=== PATIENT | female | born 1975 | race Caucasian/White ===

== ENCOUNTER → 2018-08-02 | Outpatient (CLI) | payer OTHER ==
[~2018-08-02] MED LIST: ACET325 PO; ALBU90OI INH; BUDE6HFA INH; CBD LOTION; FLUO10 PO; GABA800 PO; HYOS.125 SL; LATUDA40 MG PO; LATUDA80 MG PO; LISI20 PO; Lasix80 MG PO; METF500C PO; PANT40 PO; POTA8 PO; PRAZ5 PO; SUMATRIPTAN PO; TRAZ150T57 PO; [UNRECOGNIZED DRUG - OTHER]
[2018-08-04 16:09] LABS: HPV 16 Negative (Negative); HPV 18 Negative (Negative); HPV OTHER HR TYPES Negative (Negative)
== END | disposition home or self-care (01) ==
LOC: LAB SHORT 19:51 → LAB 19:51
PROVIDERS: Nurse Practitioner Women's Health
DX: Z12.72 Encounter for screening for malignant neoplasm of vagina (principal)
CPT/HCPCS: 87624; G0123

== ENCOUNTER 2020-08-08 18:55 | Emergency (ER) | payer OTHER ==
[~2020-08-08] VITALS: Ht 167.6 cm; Wt 143.8 kg
[~2020-08-08 18:55] MED LIST changes: +FURO40 PO; -Lasix80 MG PO
[2020-08-08 19:36] LABS: BASOPHILS ABSOLUTE AUTO 0.05 K/mm3 (0.00-0.23); BASOPHILS PERCENT AUTO 0 % (0-2); EOSINOPHILS PERCENT AUTO 2 % (0-6); Hematocrit 38.6 % (33.0-51.0); Hemoglobin 12.9 g/dL (11.5-16.0); IMMATURE GRAN ABSOLUTE AUTO 0.04 K/mm3 (0.00-0.10); IMMATURE GRAN PERCENT AUTO 0 % (0-1); LYMPHOCYTES ABSOLUTE AUTO 4.46 K/mm3 (0.84-5.20); LYMPHOCYTES PERCENT AUTO 37 % (21-46); MONOCYTES ABSOLUTE AUTO 0.57 K/mm3 (0.16-1.47); MONOCYTES PERCENT AUTO 5 % (4-13); Mean Corpuscular HGB 30.8 pg (26.0-34.0); Mean Corpuscular HGB Conc 33.4 g/dL (31.5-36.5); Mean Corpuscular Volume 92 fL (80-100); Mean Platelet Volume 10.3 fL (9.1-12.4); NEUTROPHILS ABSOLUTE AUTO 6.73 K/mm3 (1.96-9.15); NEUTROPHILS PERCENT AUTO 56 % (41-73); Platelet Count 270 K/mm3 (150-400); RDW Coefficient Variation 12.7 % (11.7-14.2); RDW Standard Deviation 42.8 fL (35.1-46.3); Red Blood Cell Count 4.19 M/mm3 (3.80-5.20); White Blood Cell Count 12.05 K/mm3 (4.00-11.30)
[2020-08-08 20:00] LABS: Troponin I <0.015 ng/mL (0.000-0.040)
[2020-08-08 20:08] LABS: Alanine Aminotransfer (ALT/SGP 15 U/L (12-78); Albumin, Blood 3.7 g/dL (3.4-5.0); Alk Phos 94 U/L (50-136); Anion Gap 9 mmol/L (6-16); Aspartate Aminotrans (AST/SGOT 7 U/L (12-37); Bilirubin, Total 0.3 mg/dL (0.1-1.0); Blood Urea Nitrogen 15 mg/dL (8-24); Bun/Creatinine Ratio 24.2 (12.0-20.0); CO2, Blood 21 mmol/L (21-32); Calcium, Blood 9.1 mg/dL (8.5-10.1); Chloride, Blood 109 mmol/L (98-108); Creatinine, Blood 0.62 mg/dL (0.40-1.00); Globulin, Blood 3.6 g/dL (2.2-4.0); Glomerular Filtration Rate >60 (60-); Glucose, Blood 133 mg/dL (70-99); Potassium, Blood 3.7 mmol/L (3.5-5.5); Sodium, Blood 139 mmol/L (136-145); Total Protein, Blood 7.3 g/dL (6.4-8.2)
[2020-08-08] MEDS ORDERED: LAMICTAL25 MG PO (21:11)
[2020-08-08] MEDS ORDERED: TOPI100 PO (21:12)
[2020-08-08] MEDS ORDERED: BUSP10 (21:12)
[2020-08-08 22:50] LABS: Influenza A, PCR Negative (NEGATIVE); Influenza B, PCR Negative (NEGATIVE); Resp Syncytial Virus, PCR Negative (NEGATIVE); SARS-Cov-2 (COVID-19) PCR, MMC Negative (NEGATIVE)
== END 2020-08-08 22:10 | disposition home or self-care (01) ==
LOC: ER 18:55
PROVIDERS: Emergency Medicine; Physician Assistant
DX: R07.9 Chest pain, unspecified (principal); F17.210 Nicotine dependence, cigarettes, uncomplicated; Z79.899 Other long term (current) drug therapy; Z79.84 Long term (current) use of oral hypoglycemic drugs; Z20.822 Contact with and (suspected) exposure to COVID-19; Z88.0 Allergy status to penicillin; Z88.1 Allergy status to other antibiotic agents
CPT/HCPCS: 0241U; 36415; 71046; 80053; 84484; 85025; 93005; 93010; 99285-25

== ENCOUNTER → 2020-11-14 | Outpatient (CLI) | payer OTHER ==
[~2020-11-14] MED LIST changes: +BUSP10; -FURO40 PO; +LAMICTAL25 MG PO; +Lasix80 MG PO; +TOPI100 PO
[2020-11-14 11:44] LABS: Source, Urine Clean Catch
[2020-11-14 12:11] LABS: Bilirubin, Urine Neg (Neg); Blood, Urine Neg (Neg); Glucose Qualitative, Urine Neg (Neg); Ketones, Urine Neg (Neg); Leukocyte Esterase, Urine 1+ (Neg); Nitrite, Urine Neg (Neg); Protein, Urine Neg (Neg); Urobilinogen, Urine NORM (Normal)
[2020-11-14 12:20] LABS: Amorphous Mod (0-Heavy); Appearance, Urine Hazy (Clear); Bacteria Few /hpf; Color, Urine Yellow (P-Yellow); Mucus Light (0-Heavy); Red Blood Cells, Urine Not Seen /hpf (0-2); Squamous Epithelial Cells Few /hpf (Few)
== END | disposition home or self-care (01) ==
LOC: LAB SHORT 11:20
PROVIDERS: Student in an Organized Health Care Education/Training Program
DX: R53.83 Other fatigue (principal)
CPT/HCPCS: 81001; 87086

== ENCOUNTER 2020-11-29 18:49 | Emergency (ER) | payer OTHER ==
[~2020-11-29] VITALS: Ht 167.6 cm; Wt 149.7 kg
[~2020-11-29 18:49] MED LIST changes: +FURO40 PO; -Lasix80 MG PO
[2020-11-29] MEDS ORDERED: Cymbalta20 MG PO (20:16)
== END 2020-11-29 21:00 | disposition home or self-care (01) ==
LOC: ER 18:49
DX: M70.62 Trochanteric bursitis, left hip (principal); M53.3 Sacrococcygeal disorders, not elsewhere classified; F17.210 Nicotine dependence, cigarettes, uncomplicated; Z88.0 Allergy status to penicillin; Z88.1 Allergy status to other antibiotic agents; Z79.899 Other long term (current) drug therapy
CPT/HCPCS: 73502; 99283-25

== ENCOUNTER 2021-01-15 17:28 | Emergency (ER) | payer OTHER ==
[~2021-01-15] VITALS: Ht 167.6 cm; Wt 149.7 kg
[~2021-01-15 17:28] MED LIST changes: +Cymbalta20 MG PO
[2021-01-15 18:32] LABS: BASOPHILS ABSOLUTE AUTO 0.04 K/mm3 (0.00-0.23); BASOPHILS PERCENT AUTO 0 % (0-2); EOSINOPHILS ABSOLUTE AUTO 0.23 K/mm3 (0.00-0.68); EOSINOPHILS PERCENT AUTO 2 % (0-6); Hematocrit 38.7 % (33.0-51.0); Hemoglobin 12.9 g/dL (11.5-16.0); IMMATURE GRAN ABSOLUTE AUTO 0.03 K/mm3 (0.00-0.10); IMMATURE GRAN PERCENT AUTO 0 % (0-1); LYMPHOCYTES ABSOLUTE AUTO 3.64 K/mm3 (0.84-5.20); LYMPHOCYTES PERCENT AUTO 37 % (21-46); MONOCYTES ABSOLUTE AUTO 0.68 K/mm3 (0.16-1.47); MONOCYTES PERCENT AUTO 7 % (4-13); Mean Corpuscular HGB 30.6 pg (26.0-34.0); Mean Corpuscular HGB Conc 33.3 g/dL (31.5-36.5); Mean Corpuscular Volume 92 fL (80-100); Mean Platelet Volume 9.8 fL (9.1-12.4); NEUTROPHILS ABSOLUTE AUTO 5.18 K/mm3 (1.96-9.15); NEUTROPHILS PERCENT AUTO 53 % (41-73); Platelet Count 278 K/mm3 (150-400); RDW Coefficient Variation 12.5 % (11.7-14.2); RDW Standard Deviation 42.1 fL (35.1-46.3); Red Blood Cell Count 4.21 M/mm3 (3.80-5.20)
[2021-01-15 19:24] LABS: Alanine Aminotransfer (ALT/SGP 17 U/L (12-78); Albumin, Blood 3.8 g/dL (3.4-5.0); Albumin/Globulin Ratio 0.9 (0.8-1.8); Alk Phos 79 U/L (50-136); Anion Gap 6 mmol/L (6-16); Aspartate Aminotrans (AST/SGOT 12 U/L (12-37); Bilirubin, Total 0.3 mg/dL (0.1-1.0); Blood Urea Nitrogen 20 mg/dL (8-24); Bun/Creatinine Ratio 23.7 (12.0-20.0); CO2, Blood 26 mmol/L (21-32); Calcium, Blood 9.1 mg/dL (8.5-10.1); Chloride, Blood 107 mmol/L (98-108); Creatinine, Blood 0.84 mg/dL (0.40-1.00); Globulin, Blood 4.1 g/dL (2.2-4.0); Glomerular Filtration Rate >60 (60-); Glucose, Blood 108 mg/dL (70-99); Sodium, Blood 139 mmol/L (136-145); Total Protein, Blood 7.9 g/dL (6.4-8.2)
[2021-01-15] MEDS ORDERED: Oxybutynin Chlo15 MG PO (21:45)
[2021-01-15] MEDS ORDERED: MELO7.5 (21:45)
[2021-01-15] MEDS ORDERED: ROPI.25 PO (21:45)
== END 2021-01-15 23:38 | disposition home or self-care (01) ==
LOC: ER 17:28
PROVIDERS: Physician Assistant
DX: G43.909 Migraine, unspecified, not intractable, without status migrainosus (principal); Z79.899 Other long term (current) drug therapy; Z88.0 Allergy status to penicillin; Z88.1 Allergy status to other antibiotic agents; Z87.891 Personal history of nicotine dependence
CPT/HCPCS: 36415; 70450; 76705; 80053; 85025; 96374; 96375; 99284-25; J0780; J1200; J1885; J7030

== ENCOUNTER 2021-02-07 08:04 | Day surgery (SDC) | payer OTHER ==
[~2021-02-07] VITALS: Ht 167.6 cm; Wt 146.0 kg
[~2021-02-07 08:04] MED LIST changes: +MELO7.5; +Oxybutynin Chlo15 MG PO; +ROPI.25 PO
[2021-02-07] MEDS ORDERED: BUSP10 PO (09:02)
--- NOTE | 2021-02-07 09:51 | NUR ---
Ambulatory in Day Surgery History, Chart, Medications and Allergies reviewed before start of procedure. Lungs clear T/O to Auscultation. Patient confirms NPO status and agrees with scheduled surgery. Patient States Post-Procedure ride home has been arranged. Pre-Op teaching done. Pt verbalizes understanding.
--- NOTE | 2021-02-07 12:23 | NUR ---
02/07/21 1223 Edelmira Dubose History, Chart, Medications and Allergies reviewed before start of procedure.Patient confirms NPO status and agrees with scheduled surgery.MONITOR INTACT WITH CONTINUOUS PULSE OXIMETRY AND INTERMITTENT BP.O2 VIA N/C INTACT THROUGHOUT SEDATION/PROCEDURE. See Anesthesia record
--- NOTE | 2021-02-07 13:11 | NUR ---
REPORT GIVEN TO MENDEL KENNEDY
--- NOTE | 2021-02-07 13:15 | NUR ---
Discharge instructions reviewed with patient. Patient verbalizes understanding. Copy given to patient to take home.
--- NOTE | 2021-02-07 13:25 | NUR ---
Discharged via wheelchair to private car for ride home.
== END 2021-02-07 13:30 | disposition home or self-care (01) ==
LOC: ORSCMMR 08:04 → ORD 09:30 → ORSCMMR 09:30
PROVIDERS: Internal Medicine Gastroenterology
PROC: 0DBP8ZX Excision of Rectum, Via Natural or Artificial Opening Endoscopic, Diagnostic (ICD-10-PCS; principal; 2021-02-07 09:30)
PROC: 0DBE8ZX Excision of Large Intestine, Via Natural or Artificial Opening Endoscopic, Diagnostic (ICD-10-PCS; principal; 2021-02-07 09:30)
PROC: 0DBK8ZX Excision of Ascending Colon, Via Natural or Artificial Opening Endoscopic, Diagnostic (ICD-10-PCS; principal; 2021-02-07 09:30)
DX: R19.4 Change in bowel habit (principal); Z86.010 Personal history of colon polyps; D12.2 Benign neoplasm of ascending colon; K60.2 Anal fissure, unspecified; K64.1 Second degree hemorrhoids; Z87.891 Personal history of nicotine dependence; E11.9 Type 2 diabetes mellitus without complications; I10 Essential (primary) hypertension; G40.909 Epilepsy, unspecified, not intractable, without status epilepticus; Z79.84 Long term (current) use of oral hypoglycemic drugs; Z79.899 Other long term (current) drug therapy; F31.9 Bipolar disorder, unspecified
CPT/HCPCS: 82947; 88305; J2704; J7120

== ENCOUNTER 2021-04-21 16:30 | Inpatient (IN) | payer OTHER ==
[~2021-04-21] VITALS: Ht 167.6 cm; Wt 144.6 kg
[~2021-04-21 16:30] MED LIST changes: -Cymbalta20 MG PO; -FURO40 PO; -GABA800 PO; -LAMICTAL25 MG PO; -METF500C PO; -POTA8 PO; -ROPI.25 PO; -TOPI100 PO; -TRAZ150T57 PO
[2021-04-21 17:49] LABS: Mean Corpuscular HGB 30.7 pg (26.0-34.0); Mean Corpuscular HGB Conc 33.3 g/dL (31.5-36.5); Mean Corpuscular Volume 92 fL (80-100); Platelet Count 272 K/mm3 (150-400); RDW Standard Deviation 43.5 fL (35.1-46.3); Red Blood Cell Count 4.24 M/mm3 (3.80-5.20); White Blood Cell Count 10.06 K/mm3 (4.00-11.30)
[2021-04-21 18:08] LABS: Alanine Aminotransfer (ALT/SGP 16 U/L (12-78); Albumin, Blood 3.6 g/dL (3.4-5.0); Albumin/Globulin Ratio 0.9 (0.8-1.8); Alk Phos 75 U/L (50-136); Anion Gap 6 mmol/L (6-16); Aspartate Aminotrans (AST/SGOT 11 U/L (12-37); Bilirubin, Total 0.4 mg/dL (0.1-1.0); Blood Urea Nitrogen 10 mg/dL (8-24); Bun/Creatinine Ratio 14.9 (12.0-20.0); CO2, Blood 25 mmol/L (21-32); Calcium, Blood 9.1 mg/dL (8.5-10.1); Chloride, Blood 108 mmol/L (98-108); Creatinine, Blood 0.67 mg/dL (0.40-1.00); Globulin, Blood 3.9 g/dL (2.2-4.0); Glomerular Filtration Rate >60 (60-); Glucose, Blood 109 mg/dL (70-99); Potassium, Blood 3.3 mmol/L (3.5-5.5); Sodium, Blood 139 mmol/L (136-145); Total Protein, Blood 7.5 g/dL (6.4-8.2)
[2021-04-21 18:16] LABS: BASOPHILS PERCENT MAN 1 % (0-2); EOSINOPHILS PERCENT MAN 1 % (0-6); LYMPHOCYTES % ATYPICAL MANUAL 3 % (0-0); LYMPHOCYTES ABSOLUTE MAN 3.52 K/mm3 (0.84-5.20); LYMPHOCYTES PERCENT MAN 32 % (21-46); MONOCYTES PERCENT MAN 5 % (4-13); NEUTROPHILS ABSOLUTE MAN 5.83 K/mm3 (1.96-9.15); SEG NEUTROPHILS PERCENT MAN 58 % (41-73); TOTAL CELLS COUNTED 100
[2021-04-21 19:12] LABS: International Normalized Ratio 1.01; Prothrombin Time Results 10.6 Sec (9.7-11.5)
[2021-04-21 21:44] LABS: SARS-Cov-2 (COVID-19) PCR, MMC NEGATIVE (NEGATIVE)
[2021-04-21] MEDS ORDERED: GABA600 PO (21:51)
[2021-04-21] MEDS ORDERED: ROPI.25 PO (21:52)
[2021-04-21] MEDS ORDERED: BUSP10 PO (21:53)
[2021-04-21] MEDS ORDERED: METF500 PO (21:53)
[2021-04-21] MEDS ORDERED: DULO30 PO (21:54)
[2021-04-21] MEDS ORDERED: LATUDA20 M3 PO (21:55)
[2021-04-21] MEDS ORDERED: Trazodone HCl300 MG PO (21:56)
[2021-04-21] MEDS ORDERED: POTCHL20ER PO (21:57)
[2021-04-21] MEDS ORDERED: TOPI100 PO (21:57)
[2021-04-21] MEDS ORDERED: FURO40 PO (22:03)
[2021-04-21] MEDS ORDERED: LAMO100 PO (22:03)
[2021-04-21] MEDS ORDERED: PROG100 PO (22:04)
--- NOTE | 2021-04-22 00:26 | NUR ---
NEW ADMIT PT ARRIVED FROM ER VIA W/C TO RM [phone] @[phone]. ADMITTED FOR CVA. SBY ASSIT TO BED. ORIENTED TO CALL LIGHT & RM. WCTM.
[2021-04-22] MEDS ORDERED: OXYB5 PO (00:34)
[2021-04-22 05:12] LABS: CHOL/HDL RATIO 4.9; Cholesterol 205 mg/dL (50-200); HDL Cholesterol 42 mg/dL (>39); LDL/HDL RATIO 3.4; Low Density Lipoprotein Chol 141 mg/dL (0-110); Triglycerides 108 mg/dL (30-160); Very Low Density Lipoprot Chol 21 mg/dL (6-32)
--- NOTE | 2021-04-22 05:18 | NUR ---
SHIFT SUMMARY AOX4. SLOW TO RESPOND @TIMES, STATES SHE FEELS "FOGGY & FORGETFUL." VSS. TELE NSR HR 60'S. HAS SLIGHT R FACIAL DROOP. 02/01 N/T PAIN TO R HAND RAIDIATING UP R ARM, GAVE TYLENOL 1X. R EXTREMITIES WEAKER SHOE STITCHER THEN L. +PRONATOR DRIFT R ARM. MRI, ECHO & SPEECH EVAL PLANNED FOR TODAY. DENIES CELAYA, N/V OR SOB. CALL LIGHT IN REACH & PT ABLE TO MAKE NEEDS KNOWN. WCTM.
--- NOTE | 2021-04-22 18:29 | NUR ---
PT IS ALERT AND ORIENTED X 3. DENIES PAIN. VS WNL. SHE IS VERY PLEASANT AND COOPERATIVE. SHE DOES NOT APPEAR TO BE IN ACUTE DISTRESS. SHE HAD AN UNEVENTFUL DAY. IV HL WAS REPLACED.
[2021-04-23 05:47] LABS: Anion Gap 7 mmol/L (6-16); Blood Urea Nitrogen 12 mg/dL (8-24); Bun/Creatinine Ratio 17.1 (12.0-20.0); CO2, Blood 25 mmol/L (21-32); Chloride, Blood 107 mmol/L (98-108); Glomerular Filtration Rate >60 (60-); Glucose, Blood 140 mg/dL (70-99); Potassium, Blood 3.8 mmol/L (3.5-5.5); Sodium, Blood 139 mmol/L (136-145)
[2021-04-23] MEDS ORDERED: ASPI81CH PO (11:05)
--- NOTE | 2021-04-23 11:44 | NUR ---
DISCHARGE INSTRUCTIONS REVIEWED WITH THE PATIENT. ALL QUESTIONS ANSWERED. IV AND TELE D/C'ED. PATIENT IN ROOM GETTING READY TO DISCHARGE HOMEL; PATIENT'S TO [facility] PATIENT.
== END 2021-04-23 12:33 | disposition home health service (06) | DRG 103 ==
LOC: ER 16:30 → MEDS 21:59
PROVIDERS: Emergency Medicine; Internal Medicine; Physician Assistant; ADMIT Internal Medicine
DX: G43.109 Migraine with aura, not intractable, without status migrainosus (principal); G45.9 Transient cerebral ischemic attack, unspecified; Z68.43 Body mass index [BMI] 50.0-59.9, adult; G81.91 Hemiplegia, unspecified affecting right dominant side; Z20.822 Contact with and (suspected) exposure to COVID-19; R29.810 Facial weakness; R47.81 Slurred speech; E87.6 Hypokalemia; F32.9 Major depressive disorder, single episode, unspecified; E11.9 Type 2 diabetes mellitus without complications; I10 Essential (primary) hypertension; E66.01 Morbid (severe) obesity due to excess calories; M54.30 Sciatica, unspecified side; E04.1 Nontoxic single thyroid nodule; Z88.0 Allergy status to penicillin; Z88.1 Allergy status to other antibiotic agents; Z79.899 Other long term (current) drug therapy; Z79.84 Long term (current) use of oral hypoglycemic drugs; Z90.49 Acquired absence of other specified parts of digestive tract; Z90.710 Acquired absence of both cervix and uterus; Z98.890 Other specified postprocedural states
CPT/HCPCS: 36415; 70450; 70496; 70498; 70551; 80048; 80053; 80061; 85025; 85610; 92507; 92523; 92610; 93005; 93010; 93306; 93880; 96374-59; 96375-59; 97110; 97161; 97167; 97530; 97535; 99285-25; A9270; J1100; J1200; J2765; Q9967; U0004

== ENCOUNTER 2021-10-06 18:27 | Emergency (ER) | payer MEDICARE, OTHER ==
[~2021-10-06] VITALS: Ht 167.6 cm; Wt 145.2 kg
[~2021-10-06 18:27] MED LIST changes: +ASPI81CH PO; +BUSP10 PO; +DULO30 PO; +FURO40 PO; +GABA600 PO; +LAMO100 PO; +LATUDA20 M3 PO; +METF500 PO; +OXYB5 PO; +POTCHL20ER PO; +PROG100 PO; +ROPI.25 PO; +TOPI100 PO; +Trazodone HCl300 MG PO
[2021-10-06 19:14] LABS: Source, Urine Clean Catch
[2021-10-06 19:16] LABS: Bilirubin, Urine Neg (Neg); Blood, Urine Neg (Neg); Glucose Qualitative, Urine Neg (Neg); Ketones, Urine Neg (Neg); Leukocyte Esterase, Urine Neg (Neg); Nitrite, Urine Neg (Neg); Protein, Urine Neg (Neg); Urobilinogen, Urine NORM (Normal)
[2021-10-06 19:22] LABS: Appearance, Urine Clear (Clear); Color, Urine Pale Yellow (P-Yellow)
[2021-10-06 20:00] LABS: BASOPHILS ABSOLUTE AUTO 0.06 K/mm3 (0.00-0.23); BASOPHILS PERCENT AUTO 1 % (0-2); EOSINOPHILS ABSOLUTE AUTO 0.21 K/mm3 (0.00-0.68); EOSINOPHILS PERCENT AUTO 2 % (0-6); Hemoglobin 14.5 g/dL (11.5-16.0); IMMATURE GRAN ABSOLUTE AUTO 0.04 K/mm3 (0.00-0.10); IMMATURE GRAN PERCENT AUTO 0 % (0-1); LYMPHOCYTES PERCENT AUTO 37 % (21-46); MONOCYTES PERCENT AUTO 5 % (4-13); Mean Corpuscular HGB 30.4 pg (26.0-34.0); Mean Corpuscular HGB Conc 32.2 g/dL (31.5-36.5); Mean Corpuscular Volume 94 fL (80-100); Mean Platelet Volume 10.2 fL (9.1-12.4); NEUTROPHILS ABSOLUTE AUTO 6.14 K/mm3 (1.96-9.15); NEUTROPHILS PERCENT AUTO 55 % (41-73); Platelet Count 279 K/mm3 (150-400); RDW Coefficient Variation 12.3 % (11.7-14.2); RDW Standard Deviation 42.9 fL (35.1-46.3); Red Blood Cell Count 4.77 M/mm3 (3.80-5.20); White Blood Cell Count 11.25 K/mm3 (4.00-11.30)
[2021-10-06 20:21] LABS: Alanine Aminotransfer (ALT/SGP 22 U/L (12-78); Albumin, Blood 3.8 g/dL (3.4-5.0); Albumin/Globulin Ratio 0.9 (0.8-1.8); Alk Phos 107 U/L (50-136); Anion Gap 6 mmol/L (6-16); Aspartate Aminotrans (AST/SGOT 23 U/L (12-37); Bilirubin, Total 0.5 mg/dL (0.1-1.0); Blood Urea Nitrogen 12 mg/dL (8-24); Bun/Creatinine Ratio 21.2 (12.0-20.0); CO2, Blood 19 mmol/L (21-32); Calcium, Blood 8.8 mg/dL (8.5-10.1); Chloride, Blood 109 mmol/L (98-108); Creatinine, Blood 0.57 mg/dL (0.40-1.00); Globulin, Blood 4.4 g/dL (2.2-4.0); Glomerular Filtration Rate >60 (60-); Glucose, Blood 184 mg/dL (70-99); Potassium, Blood 4.5 mmol/L (3.5-5.5); Sodium, Blood 134 mmol/L (136-145); Total Protein, Blood 8.2 g/dL (6.4-8.2)
[2021-10-15] MEDS ORDERED: Norco 5-325 Ta1 EACH PO (11:59)
== END 2021-10-07 00:09 | disposition home or self-care (01) ==
LOC: ER 18:27
PROVIDERS: Physician Assistant
DX: K80.50 Calculus of bile duct without cholangitis or cholecystitis without obstruction (principal); E11.9 Type 2 diabetes mellitus without complications; Z88.0 Allergy status to penicillin; Z79.899 Other long term (current) drug therapy
CPT/HCPCS: 36415; 76705; 80053; 81003; 81025; 83690; 85025; 99285-25; A9270; J1885; J2405; J3010; J7030

== ENCOUNTER 2021-11-06 17:24 | Emergency (ER) | payer MEDICARE, OTHER ==
[~2021-11-06] VITALS: Ht 167.6 cm; Wt 142.4 kg
[~2021-11-06 17:24] MED LIST changes: +Norco 5-325 Ta1 EACH PO
[2021-11-06 18:30] LABS: BASOPHILS ABSOLUTE AUTO 0.03 K/mm3 (0.00-0.23); BASOPHILS PERCENT AUTO 0 % (0-2); EOSINOPHILS ABSOLUTE AUTO 0.14 K/mm3 (0.00-0.68); EOSINOPHILS PERCENT AUTO 2 % (0-6); Hematocrit 38.8 % (33.0-51.0); Hemoglobin 13.3 g/dL (11.5-16.0); IMMATURE GRAN ABSOLUTE AUTO 0.02 K/mm3 (0.00-0.10); IMMATURE GRAN PERCENT AUTO 0 % (0-1); LYMPHOCYTES ABSOLUTE AUTO 3.17 K/mm3 (0.84-5.20); LYMPHOCYTES PERCENT AUTO 40 % (21-46); MONOCYTES PERCENT AUTO 6 % (4-13); Mean Corpuscular HGB 30.9 pg (26.0-34.0); Mean Corpuscular HGB Conc 34.3 g/dL (31.5-36.5); Mean Corpuscular Volume 90 fL (80-100); Mean Platelet Volume 10.2 fL (9.1-12.4); NEUTROPHILS PERCENT AUTO 51 % (41-73); Platelet Count 275 K/mm3 (150-400); RDW Coefficient Variation 12.8 % (11.7-14.2); RDW Standard Deviation 41.9 fL (35.1-46.3); White Blood Cell Count 7.86 K/mm3 (4.00-11.30)
[2021-11-06 18:47] LABS: Alanine Aminotransfer (ALT/SGP 24 U/L (12-78); Albumin, Blood 3.7 g/dL (3.4-5.0); Alk Phos 93 U/L (50-136); Anion Gap 7 mmol/L (6-16); Aspartate Aminotrans (AST/SGOT 10 U/L (12-37); Bilirubin, Total 0.4 mg/dL (0.1-1.0); Blood Urea Nitrogen 15 mg/dL (8-24); Bun/Creatinine Ratio 28.5 (12.0-20.0); CO2, Blood 22 mmol/L (21-32); Calcium, Blood 9.3 mg/dL (8.5-10.1); Chloride, Blood 107 mmol/L (98-108); Creatinine, Blood 0.53 mg/dL (0.40-1.00); Globulin, Blood 3.7 g/dL (2.2-4.0); Glomerular Filtration Rate >60 (60-); Glucose, Blood 244 mg/dL (70-99); Potassium, Blood 3.4 mmol/L (3.5-5.5); Sodium, Blood 136 mmol/L (136-145); Total Protein, Blood 7.4 g/dL (6.4-8.2)
== END 2021-11-06 20:01 | disposition home or self-care (01) ==
LOC: ER 17:24
PROVIDERS: Physician Assistant
DX: G43.109 Migraine with aura, not intractable, without status migrainosus (principal); Z88.1 Allergy status to other antibiotic agents; Z88.0 Allergy status to penicillin; Z79.899 Other long term (current) drug therapy; Z79.82 Long term (current) use of aspirin; E11.40 Type 2 diabetes mellitus with diabetic neuropathy, unspecified
CPT/HCPCS: 70450; 70496; 70498; 80053; 82947; 85025; 86850; 86900; 86901; 93005; 93010; 96374; 96375; 99284-25; J1200; J1885; J2060; J2765; Q9967

== ENCOUNTER 2021-12-02 14:25 | Observation (INO) | payer MEDICARE, OTHER ==
[~2021-12-02] VITALS: Ht 167.6 cm; Wt 144.2 kg
[2021-12-02 15:56] LABS: Source, Urine Clean Catch
[2021-12-02 15:59] LABS: Appearance, Urine Hazy (Clear); Bilirubin, Urine Neg (Neg); Blood, Urine 3+ (Neg); Color, Urine Yellow (P-Yellow); Glucose Qualitative, Urine Neg (Neg); Ketones, Urine Neg (Neg); Leukocyte Esterase, Urine 3+ (Neg); Nitrite, Urine Neg (Neg); Protein, Urine 1+ (Neg); Specific Gravity, Urine 1.015 (1.003-1.022); Urobilinogen, Urine NORM (Normal)
[2021-12-02 16:13] LABS: BASOPHILS ABSOLUTE AUTO 0.06 K/mm3 (0.00-0.23); BASOPHILS PERCENT AUTO 0 % (0-2); EOSINOPHILS ABSOLUTE AUTO 0.07 K/mm3 (0.00-0.68); EOSINOPHILS PERCENT AUTO 1 % (0-6); Hematocrit 43.9 % (33.0-51.0); Hemoglobin 15.1 g/dL (11.5-16.0); IMMATURE GRAN ABSOLUTE AUTO 0.06 K/mm3 (0.00-0.10); IMMATURE GRAN PERCENT AUTO 0 % (0-1); LYMPHOCYTES ABSOLUTE AUTO 4.41 K/mm3 (0.84-5.20); LYMPHOCYTES PERCENT AUTO 29 % (21-46); MONOCYTES PERCENT AUTO 5 % (4-13); Mean Corpuscular HGB 31.3 pg (26.0-34.0); Mean Corpuscular HGB Conc 34.4 g/dL (31.5-36.5); Mean Corpuscular Volume 91 fL (80-100); Mean Platelet Volume 10.1 fL (9.1-12.4); NEUTROPHILS ABSOLUTE AUTO 10.16 K/mm3 (1.96-9.15); NEUTROPHILS PERCENT AUTO 66 % (41-73); Platelet Count 305 K/mm3 (150-400); RDW Coefficient Variation 12.9 % (11.7-14.2); RDW Standard Deviation 42.7 fL (35.1-46.3); Red Blood Cell Count 4.82 M/mm3 (3.80-5.20); White Blood Cell Count 15.46 K/mm3 (4.00-11.30)
[2021-12-02 16:19] LABS: Bacteria Many /hpf; Squamous Epithelial Cells Mod /hpf (Few)
[2021-12-02 16:20] LABS: Amorphous Light (0-Heavy)
[2021-12-02] MEDS ORDERED: METFORMIN HCL500 M3 PO (16:26)
[2021-12-02] MEDS ORDERED: ATORVASTATIN CA20 MG PO (16:27)
[2021-12-02] MEDS ORDERED: LISI5 PO (16:29)
[2021-12-02] MEDS ORDERED: EUTHYROX50 MC1 PO (16:30)
[2021-12-02] MEDS ORDERED: Potassium Chlo20 ME1 PO (16:30)
[2021-12-02] MEDS ORDERED: TERB250 PO (16:31)
[2021-12-02] MEDS ORDERED: LINZESS290 MCG PO (16:32)
[2021-12-02 16:36] LABS: Acetaminophen, Random <2.0 ug/mL (10.0-30.0); Alanine Aminotransfer (ALT/SGP 22 U/L (12-78); Albumin, Blood 4.1 g/dL (3.4-5.0); Albumin/Globulin Ratio 0.9 (0.8-1.8); Alk Phos 117 U/L (50-136); Anion Gap 12 mmol/L (6-16); Aspartate Aminotrans (AST/SGOT 13 U/L (12-37); Bilirubin, Total 0.5 mg/dL (0.1-1.0); Blood Urea Nitrogen 9 mg/dL (8-24); Bun/Creatinine Ratio 18.8 (12.0-20.0); CO2, Blood 20 mmol/L (21-32); Calcium, Blood 9.3 mg/dL (8.5-10.1); Chloride, Blood 105 mmol/L (98-108); Creatinine, Blood 0.48 mg/dL (0.40-1.00); Ethanol (Alcohol), Blood, Med <3 mg/dL; Globulin, Blood 4.4 g/dL (2.2-4.0); Glomerular Filtration Rate >60 (60-); Glucose, Blood 158 mg/dL (70-99); Potassium, Blood 3.7 mmol/L (3.5-5.5); Salicylate <1.7 mg/dL (2.8-20.0); Sodium, Blood 137 mmol/L (136-145); Total Protein, Blood 8.5 g/dL (6.4-8.2)
[2021-12-02 16:40] LABS: U Amphetamine Screen Not Detected; U Barbituate Screen Not Detected; U Benzodiazapine Screen Not Detected; U Buprenorphine Screen Not Detected; U Cannabinoids Screen DETECTED; U Cocaine Screen Not Detected; U Methadone Screen Not Detected; U Methamphetamine Screen Not Detected; U Opiates Screen Not Detected; U Oxycodone Screen Not Detected; U Phencyclidine Screen Not Detected; U Propoxyphene Screen Not Detected
[2021-12-02 18:58] LABS: Influenza A, PCR NEGATIVE (NEGATIVE); Influenza B, PCR NEGATIVE (NEGATIVE); Resp Syncytial Virus, PCR NEGATIVE (NEGATIVE); SARS-Cov-2 (COVID-19) PCR, MMC NEGATIVE (NEGATIVE)
== END 2021-12-04 01:38 ==
LOC: ER 14:25 → ERHOLD 17:17 → ER 17:17 → EOR 17:18
PROVIDERS: Physician Assistant; ADMIT Emergency Medicine
DX: F31.4 Bipolar disorder, current episode depressed, severe, without psychotic features (principal); F43.12 Post-traumatic stress disorder, chronic; F43.23 Adjustment disorder with mixed anxiety and depressed mood; R45.851 Suicidal ideations; E11.42 Type 2 diabetes mellitus with diabetic polyneuropathy; G43.909 Migraine, unspecified, not intractable, without status migrainosus; Z79.82 Long term (current) use of aspirin; Z88.0 Allergy status to penicillin; Z88.1 Allergy status to other antibiotic agents; Z20.822 Contact with and (suspected) exposure to COVID-19; Z87.891 Personal history of nicotine dependence
CPT/HCPCS: 0241U; 36415; 80053; 81001; 81025; 85025; 87086; 99285; A9270; G0378; G0480; Q3014

== ENCOUNTER 2022-02-18 13:57 | Emergency (ER) | payer MEDICARE, OTHER ==
[~2022-02-18] VITALS: Ht 167.6 cm; Wt 139.7 kg
[~2022-02-18 13:57] MED LIST changes: +ATORVASTATIN CA20 MG PO; +EUTHYROX50 MC1 PO; +LINZESS290 MCG PO; +LISI5 PO; +METFORMIN HCL500 M3 PO; +Potassium Chlo20 ME1 PO; +TERB250 PO
[2022-02-18 15:18] LABS: Source, Urine Clean Catch
[2022-02-18 15:25] LABS: Albumin, Blood 3.6 g/dL (3.4-5.0); Albumin/Globulin Ratio 0.9 (0.8-1.8); Bilirubin, Total 0.4 mg/dL (0.1-1.0); Bun/Creatinine Ratio 26.6 (12.0-20.0); Calcium, Blood 9.3 mg/dL (8.5-10.1); Creatinine, Blood 0.41 mg/dL (0.40-1.00); Globulin, Blood 4.1 g/dL (2.2-4.0); Potassium, Blood 4.1 mmol/L (3.5-5.5); Total Protein, Blood 7.7 g/dL (6.4-8.2)
[2022-02-18 15:31] LABS: Appearance, Urine Hazy (Clear); Bilirubin, Urine Neg (Neg); Blood, Urine Neg (Neg); Glucose Qualitative, Urine Neg (Neg); Ketones, Urine Neg (Neg); Leukocyte Esterase, Urine Neg (Neg); Nitrite, Urine Neg (Neg); Protein, Urine Neg (Neg); Urobilinogen, Urine NORM (Normal)
[2022-02-18 15:45] LABS: Color, Urine Pale Yellow (P-Yellow)
[2022-02-18 15:47] LABS: Bacteria Many /hpf; Red Blood Cells, Urine 0-2 /hpf (0-2); Squamous Epithelial Cells Many /hpf (Few); White Blood Cells, Urine 0-2 /hpf (0-5)
[2022-02-18 16:06] LABS: BASOPHILS ABSOLUTE AUTO 0.05 K/mm3 (0.00-0.23); BASOPHILS PERCENT AUTO 1 % (0-2); EOSINOPHILS ABSOLUTE AUTO 0.18 K/mm3 (0.00-0.68); EOSINOPHILS PERCENT AUTO 2 % (0-6); Hematocrit 44.4 % (33.0-51.0); Hemoglobin 15.1 g/dL (11.5-16.0); IMMATURE GRAN ABSOLUTE AUTO 0.05 K/mm3 (0.00-0.10); IMMATURE GRAN PERCENT AUTO 1 % (0-1); LYMPHOCYTES ABSOLUTE AUTO 3.62 K/mm3 (0.84-5.20); LYMPHOCYTES PERCENT AUTO 35 % (21-46); MONOCYTES ABSOLUTE AUTO 0.56 K/mm3 (0.16-1.47); MONOCYTES PERCENT AUTO 5 % (4-13); Mean Corpuscular HGB 30.4 pg (26.0-34.0); Mean Corpuscular Volume 90 fL (80-100); Mean Platelet Volume 9.9 fL (9.1-12.4); NEUTROPHILS ABSOLUTE AUTO 5.82 K/mm3 (1.96-9.15); NEUTROPHILS PERCENT AUTO 57 % (41-73); Platelet Count 279 K/mm3 (150-400); RDW Coefficient Variation 12.4 % (11.7-14.2); RDW Standard Deviation 40.7 fL (35.1-46.3); Red Blood Cell Count 4.96 M/mm3 (3.80-5.20); White Blood Cell Count 10.28 K/mm3 (4.00-11.30)
== END 2022-02-18 22:36 | disposition home or self-care (01) ==
LOC: ER 13:57
PROVIDERS: Physician Assistant
DX: K52.9 Noninfective gastroenteritis and colitis, unspecified (principal); E11.42 Type 2 diabetes mellitus with diabetic polyneuropathy; Z79.899 Other long term (current) drug therapy; Z79.84 Long term (current) use of oral hypoglycemic drugs; Z88.1 Allergy status to other antibiotic agents; Z88.0 Allergy status to penicillin; Z88.8 Allergy status to other drugs, medicaments and biological substances; Z79.82 Long term (current) use of aspirin; Z90.49 Acquired absence of other specified parts of digestive tract; Z90.710 Acquired absence of both cervix and uterus
CPT/HCPCS: 36415; 74177; 80053; 81001; 83690; 84703; 85025; J2270; J2405; Q9967

== ENCOUNTER 2023-04-02 14:24 | Emergency (ER) | payer MEDICARE, OTHER ==
[~2023-04-02] VITALS: Ht 167.6 cm; Wt 136.1 kg
[~2023-04-02 14:24] MED LIST changes: +HYDCHL25 PO; +MECL25 PO; +ONDA4 PO; +Percocet 5-3251 EACH PO
[2023-04-02 15:54] LABS: BASOPHILS ABSOLUTE AUTO 0.04 K/mm3 (0.00-0.23); BASOPHILS PERCENT AUTO 0 % (0-2); EOSINOPHILS ABSOLUTE AUTO 0.08 K/mm3 (0.00-0.68); EOSINOPHILS PERCENT AUTO 1 % (0-6); Hemoglobin 12.8 g/dL (11.5-16.0); IMMATURE GRAN ABSOLUTE AUTO 0.03 K/mm3 (0.00-0.10); IMMATURE GRAN PERCENT AUTO 0 % (0-1); LYMPHOCYTES ABSOLUTE AUTO 3.14 K/mm3 (0.84-5.20); LYMPHOCYTES PERCENT AUTO 35 % (21-46); MONOCYTES ABSOLUTE AUTO 0.54 K/mm3 (0.16-1.47); MONOCYTES PERCENT AUTO 6 % (4-13); Mean Corpuscular HGB 29.2 pg (26.0-34.0); Mean Corpuscular HGB Conc 33.7 g/dL (31.5-36.5); Mean Corpuscular Volume 87 fL (80-100); Mean Platelet Volume 9.7 fL (9.1-12.4); NEUTROPHILS PERCENT AUTO 57 % (41-73); Platelet Count 271 K/mm3 (150-400); RDW Standard Deviation 38.5 fL (35.1-46.3); Red Blood Cell Count 4.38 M/mm3 (3.80-5.20); White Blood Cell Count 8.93 K/mm3 (4.00-11.30)
[2023-04-02 16:21] LABS: Albumin, Blood 3.7 g/dL (3.4-5.0); Albumin/Globulin Ratio 0.9 (0.8-1.8); Bilirubin, Total 0.4 mg/dL (0.1-1.0); Bun/Creatinine Ratio 26.7 (12.0-20.0); Calcium, Blood 9.4 mg/dL (8.5-10.1); Creatinine, Blood 0.6 mg/dL (0.40-1.00); Globulin, Blood 4.2 g/dL (2.2-4.0); Potassium, Blood 3.7 mmol/L (3.5-5.5); Total Protein, Blood 7.9 g/dL (6.4-8.2)
[2023-04-02 18:31] LABS: Source, Urine Clean Catch
[2023-04-02 18:50] LABS: Appearance, Urine Hazy (Clear); Bilirubin, Urine Neg (Neg); Blood, Urine Neg (Neg); Color, Urine Yellow (P-Yellow); Glucose Qualitative, Urine Neg (Neg); Ketones, Urine Neg (Neg); Leukocyte Esterase, Urine Neg (Neg); Nitrite, Urine Neg (Neg); Protein, Urine Neg (Neg); Specific Gravity, Urine 1.025 (1.003-1.022); Urobilinogen, Urine NORM (Normal)
[2023-04-02 19:09] LABS: Bacteria Many /hpf; Red Blood Cells, Urine 0-2 /hpf (0-2); Squamous Epithelial Cells Mod /hpf (Few); White Blood Cells, Urine 0-2 /hpf (0-5)
[2023-04-02 19:10] LABS: Amorphous Light (0-Heavy)
[2023-04-02] MEDS ORDERED: LOPE2C PO (23:11)
[2023-04-02] MEDS ORDERED: OMEP20ER PO (23:11)
[2023-04-02] MEDS ORDERED: ONDA4ODT MM (23:11)
[2023-04-02] MEDS ORDERED: PROBIOTIC1 EA13 PO (23:11)
[2023-04-02 23:47] VITALS: BP 141/80
== END 2023-04-02 23:43 | disposition home or self-care (01) ==
LOC: ER 14:24
PROVIDERS: Student in an Organized Health Care Education/Training Program
DX: R10.12 Left upper quadrant pain (principal); R11.2 Nausea with vomiting, unspecified; R19.7 Diarrhea, unspecified; E11.42 Type 2 diabetes mellitus with diabetic polyneuropathy; M19.90 Unspecified osteoarthritis, unspecified site; G43.909 Migraine, unspecified, not intractable, without status migrainosus
CPT/HCPCS: 74176; 80053; 81001; 83690; 84484; 85025; 87086; 93005; 93010; 96374; 99284-25; A9270; J2405

== ENCOUNTER 2023-05-04 17:06 | Emergency (ER) | payer MEDICARE ==
[~2023-05-04] VITALS: Ht 167.6 cm; Wt 145.2 kg
[~2023-05-04 17:06] MED LIST changes: +LOPE2C PO; +OMEP20ER PO; +ONDA4ODT MM; +PROBIOTIC1 EA13 PO
[2023-05-04 18:39] LABS: Source, Urine Clean Catch
[2023-05-04 18:48] LABS: Appearance, Urine Clear (Clear); Bilirubin, Urine Neg (Neg); Blood, Urine Neg (Neg); Color, Urine Yellow (P-Yellow); Glucose Qualitative, Urine Neg (Neg); Ketones, Urine Neg (Neg); Leukocyte Esterase, Urine Neg (Neg); Nitrite, Urine Neg (Neg); Protein, Urine Neg (Neg); Specific Gravity, Urine 1.025 (1.003-1.022); Urobilinogen, Urine NORM (Normal)
[2023-05-04 19:13] LABS: BASOPHILS ABSOLUTE AUTO 0.04 K/mm3 (0.00-0.23); BASOPHILS PERCENT AUTO 0 % (0-2); EOSINOPHILS ABSOLUTE AUTO 0.12 K/mm3 (0.00-0.68); EOSINOPHILS PERCENT AUTO 1 % (0-6); Hematocrit 38.6 % (33.0-51.0); Hemoglobin 12.6 g/dL (11.5-16.0); IMMATURE GRAN ABSOLUTE AUTO 0.04 K/mm3 (0.00-0.10); IMMATURE GRAN PERCENT AUTO 0 % (0-1); LYMPHOCYTES PERCENT AUTO 33 % (21-46); MONOCYTES ABSOLUTE AUTO 0.71 K/mm3 (0.16-1.47); MONOCYTES PERCENT AUTO 6 % (4-13); Mean Corpuscular HGB 28.8 pg (26.0-34.0); Mean Corpuscular HGB Conc 32.6 g/dL (31.5-36.5); Mean Corpuscular Volume 88 fL (80-100); Mean Platelet Volume 9.6 fL (9.1-12.4); NEUTROPHILS ABSOLUTE AUTO 7.73 K/mm3 (1.96-9.15); NEUTROPHILS PERCENT AUTO 60 % (41-73); Platelet Count 293 K/mm3 (150-400); RDW Coefficient Variation 12.6 % (11.7-14.2); RDW Standard Deviation 40.9 fL (35.1-46.3); Red Blood Cell Count 4.38 M/mm3 (3.80-5.20); White Blood Cell Count 12.84 K/mm3 (4.00-11.30)
[2023-05-04 19:37] LABS: Albumin, Blood 3.5 g/dL (3.4-5.0); Albumin/Globulin Ratio 0.9 (0.8-1.8); Bilirubin, Total 0.2 mg/dL (0.1-1.0); Calcium, Blood 9.2 mg/dL (8.5-10.1); Creatinine, Blood 0.76 mg/dL (0.40-1.00); Globulin, Blood 4.1 g/dL (2.2-4.0); Potassium, Blood 3.9 mmol/L (3.5-5.5); Total Protein, Blood 7.6 g/dL (6.4-8.2)
[2023-05-04 19:41] LABS: Influenza A, PCR NEGATIVE (NEGATIVE); Influenza B, PCR NEGATIVE (NEGATIVE); Resp Syncytial Virus, PCR NEGATIVE (NEGATIVE); SARS-Cov-2 (COVID-19) PCR, MMC NEGATIVE (NEGATIVE)
[2023-05-04 20:15] VITALS: BP 160/87
== END 2023-05-04 20:15 | disposition home or self-care (01) ==
LOC: ER 17:06
PROVIDERS: Emergency Medicine; Physician Assistant
DX: B34.9 Viral infection, unspecified (principal); Z20.822 Contact with and (suspected) exposure to COVID-19; Z87.891 Personal history of nicotine dependence; Z79.899 Other long term (current) drug therapy; Z79.84 Long term (current) use of oral hypoglycemic drugs; Z79.82 Long term (current) use of aspirin; Z79.890 Hormone replacement therapy
CPT/HCPCS: 0241U; 70450; 80053; 81003; 82947; 83690; 84484; 85025; 93005; 93010; 99285-25

== ENCOUNTER 2023-07-19 13:01 | Emergency (ER) | payer OTHER, MEDICARE ==
[~2023-07-19] VITALS: Ht 167.6 cm; Wt 140.6 kg
[2023-07-19 13:27] VITALS: BP 137/81
[2023-07-19] MEDS ORDERED: HYDR1TAB94 PO (14:19)
== END 2023-07-19 14:36 | disposition home or self-care (01) ==
LOC: ER 13:01
DX: S96.911A Strain of unspecified muscle and tendon at ankle and foot level, right foot, initial encounter (principal); S93.401A Sprain of unspecified ligament of right ankle, initial encounter; E11.42 Type 2 diabetes mellitus with diabetic polyneuropathy; G43.909 Migraine, unspecified, not intractable, without status migrainosus; M19.90 Unspecified osteoarthritis, unspecified site; Z79.84 Long term (current) use of oral hypoglycemic drugs; Z79.82 Long term (current) use of aspirin; Z79.899 Other long term (current) drug therapy; Z88.0 Allergy status to penicillin; Z88.1 Allergy status to other antibiotic agents; Z88.8 Allergy status to other drugs, medicaments and biological substances; W10.9XXA Fall (on) (from) unspecified stairs and steps, initial encounter; Y92.22 Religious institution as the place of occurrence of the external cause; Y93.01 Activity, walking, marching and hiking
CPT/HCPCS: 73630; 99283-25; A9270

== ENCOUNTER 2023-07-29 16:57 | Emergency (ER) | payer MEDICARE, OTHER ==
[~2023-07-29] VITALS: Ht 167.6 cm; Wt 149.7 kg
[~2023-07-29 16:57] MED LIST changes: +HYDR1TAB94 PO
[2023-07-29 18:51] LABS: BASOPHILS ABSOLUTE AUTO 0.05 K/mm3 (0.00-0.23); BASOPHILS PERCENT AUTO 1 % (0-2); EOSINOPHILS ABSOLUTE AUTO 0.15 K/mm3 (0.00-0.68); EOSINOPHILS PERCENT AUTO 2 % (0-6); Hematocrit 42.2 % (33.0-51.0); Hemoglobin 14.5 g/dL (11.5-16.0); IMMATURE GRAN ABSOLUTE AUTO 0.04 K/mm3 (0.00-0.10); IMMATURE GRAN PERCENT AUTO 0 % (0-1); LYMPHOCYTES ABSOLUTE AUTO 3.59 K/mm3 (0.84-5.20); LYMPHOCYTES PERCENT AUTO 36 % (21-46); MONOCYTES ABSOLUTE AUTO 0.64 K/mm3 (0.16-1.47); MONOCYTES PERCENT AUTO 6 % (4-13); Mean Corpuscular HGB 29.6 pg (26.0-34.0); Mean Corpuscular HGB Conc 34.4 g/dL (31.5-36.5); Mean Corpuscular Volume 86 fL (80-100); Mean Platelet Volume 9.5 fL (9.1-12.4); NEUTROPHILS ABSOLUTE AUTO 5.55 K/mm3 (1.96-9.15); NEUTROPHILS PERCENT AUTO 55 % (41-73); Platelet Count 334 K/mm3 (150-400); RDW Coefficient Variation 13.2 % (11.7-14.2); RDW Standard Deviation 41.2 fL (35.1-46.3); White Blood Cell Count 10.02 K/mm3 (4.00-11.30)
[2023-07-29 19:12] LABS: Albumin, Blood 3.5 g/dL (3.4-5.0); Albumin/Globulin Ratio 0.9 (0.8-1.8); Bilirubin, Total 0.5 mg/dL (0.1-1.0); Bun/Creatinine Ratio 21.2 (12.0-20.0); Creatinine, Blood 0.42 mg/dL (0.40-1.00); Globulin, Blood 4.1 g/dL (2.2-4.0); Potassium, Blood 3.6 mmol/L (3.5-5.5); Total Protein, Blood 7.6 g/dL (6.4-8.2)
[2023-07-29 21:30] VITALS: BP 140/77
== END 2023-07-29 21:55 | disposition home or self-care (01) ==
LOC: ER 16:57
PROVIDERS: Physician Assistant
DX: E27.40 Unspecified adrenocortical insufficiency (principal); E11.42 Type 2 diabetes mellitus with diabetic polyneuropathy; M19.90 Unspecified osteoarthritis, unspecified site; G43.909 Migraine, unspecified, not intractable, without status migrainosus; Z79.82 Long term (current) use of aspirin; Z79.899 Other long term (current) drug therapy; Z88.0 Allergy status to penicillin; Z88.1 Allergy status to other antibiotic agents; Z88.8 Allergy status to other drugs, medicaments and biological substances
CPT/HCPCS: 70450; 72125; 80053; 84484; 85025; 93005; 93010; 96374; 96375; 96376; 99284-25; J2405; J2920; J2930

== ENCOUNTER 2023-09-14 18:26 | Emergency (ER) | payer MEDICARE, OTHER ==
[~2023-09-14] VITALS: Ht 167.6 cm; Wt 138.8 kg
[2023-09-14 18:31] VITALS: BP 147/93
[2023-09-14 18:59] LABS: Source, Urine Clean Catch
[2023-09-14 19:06] LABS: Appearance, Urine Clear (Clear); Bilirubin, Urine Neg (Neg); Blood, Urine Neg (Neg); Color, Urine Yellow (P-Yellow); Glucose Qualitative, Urine Neg (Neg); Ketones, Urine Neg (Neg); Leukocyte Esterase, Urine 1+ (Neg); Nitrite, Urine Neg (Neg); Protein, Urine 1+ (Neg); Specific Gravity, Urine 1.025 (1.003-1.022); Urobilinogen, Urine NORM (Normal)
[2023-09-14 19:13] LABS: BASOPHILS ABSOLUTE AUTO 0.05 K/mm3 (0.00-0.23); BASOPHILS PERCENT AUTO 0 % (0-2); EOSINOPHILS ABSOLUTE AUTO 0.13 K/mm3 (0.00-0.68); EOSINOPHILS PERCENT AUTO 1 % (0-6); Hematocrit 43.5 % (33.0-51.0); Hemoglobin 14.6 g/dL (11.5-16.0); IMMATURE GRAN ABSOLUTE AUTO 0.07 K/mm3 (0.00-0.10); IMMATURE GRAN PERCENT AUTO 1 % (0-1); LYMPHOCYTES ABSOLUTE AUTO 3.65 K/mm3 (0.84-5.20); LYMPHOCYTES PERCENT AUTO 29 % (21-46); MONOCYTES ABSOLUTE AUTO 0.66 K/mm3 (0.16-1.47); MONOCYTES PERCENT AUTO 5 % (4-13); Mean Corpuscular HGB 29.9 pg (26.0-34.0); Mean Corpuscular HGB Conc 33.6 g/dL (31.5-36.5); Mean Corpuscular Volume 89 fL (80-100); Mean Platelet Volume 9.9 fL (9.1-12.4); NEUTROPHILS ABSOLUTE AUTO 8.14 K/mm3 (1.96-9.15); NEUTROPHILS PERCENT AUTO 64 % (41-73); Platelet Count 336 K/mm3 (150-400); RDW Coefficient Variation 14.6 % (11.7-14.2); RDW Standard Deviation 47.7 fL (35.1-46.3); Red Blood Cell Count 4.88 M/mm3 (3.80-5.20)
[2023-09-14 19:15] LABS: Calcium Oxalate Crystals Few /hpf; Hyaline Casts 0-2 /lpf (0-2); Mucus Light (0-Heavy)
[2023-09-14 19:16] LABS: Bacteria Few /hpf; Red Blood Cells, Urine 0-2 /hpf (0-2); Squamous Epithelial Cells Mod /hpf (Few); White Blood Cells, Urine 0-2 /hpf (0-5)
[2023-09-14 19:35] LABS: Albumin, Blood 3.6 g/dL (3.4-5.0); Albumin/Globulin Ratio 0.9 (0.8-1.8); Bilirubin, Total 0.3 mg/dL (0.1-1.0); Bun/Creatinine Ratio 30.5 (12.0-20.0); Calcium, Blood 9.7 mg/dL (8.5-10.1); Creatinine, Blood 0.49 mg/dL (0.40-1.00); Globulin, Blood 3.9 g/dL (2.2-4.0); Potassium, Blood 3.6 mmol/L (3.5-5.5); Total Protein, Blood 7.5 g/dL (6.4-8.2)
[2023-09-14 21:07] LABS: Base Excess Venous 1.8 mmol/L; Bicarbonate Venous 26.2 mmol/L (24.0-30.0); PCO2 Venous 36.3 mmHg (38-42); pH Blood Venous 7.46 (7.34-7.37)
== END 2023-09-14 23:11 | disposition home or self-care (01) ==
LOC: ER 18:26
PROVIDERS: Student in an Organized Health Care Education/Training Program
DX: B34.9 Viral infection, unspecified (principal); E11.65 Type 2 diabetes mellitus with hyperglycemia; E27.1 Primary adrenocortical insufficiency; Z79.899 Other long term (current) drug therapy; Z79.84 Long term (current) use of oral hypoglycemic drugs; Z79.890 Hormone replacement therapy; Z79.82 Long term (current) use of aspirin; Z87.891 Personal history of nicotine dependence
CPT/HCPCS: 71046; 80053; 81001; 82803; 85025; 87086; 93005; 93010; 99285-25

== ENCOUNTER → 2024-01-29 | Outpatient (CLI) | payer MEDICARE, OTHER ==
[~2024-01-29] MED LIST changes: +ATOR40TA PO; +Cleocin HCl300 MG PO; +ESTRADIOL1 MG PO; +HUMALOG KW100 UNIT/1 SC; +HYDHCL25 PO; +LIOT25 PO; +PREG100 PO; +Prozac20 MG PO; +QUET100 PO; +TRAZ100 PO; -Trazodone HCl300 MG PO
[2024-01-29 16:39] LABS: BASOPHILS ABSOLUTE AUTO 0.05 K/mm3 (0.00-0.23); BASOPHILS PERCENT AUTO 1 % (0-2); EOSINOPHILS ABSOLUTE AUTO 0.15 K/mm3 (0.00-0.68); EOSINOPHILS PERCENT AUTO 1 % (0-6); Hematocrit 39.2 % (33.0-51.0); IMMATURE GRAN ABSOLUTE AUTO 0.04 K/mm3 (0.00-0.10); IMMATURE GRAN PERCENT AUTO 0 % (0-1); LYMPHOCYTES ABSOLUTE AUTO 2.78 K/mm3 (0.84-5.20); LYMPHOCYTES PERCENT AUTO 27 % (21-46); MONOCYTES ABSOLUTE AUTO 0.68 K/mm3 (0.16-1.47); MONOCYTES PERCENT AUTO 7 % (4-13); Mean Corpuscular HGB 29.2 pg (26.0-34.0); Mean Corpuscular HGB Conc 33.2 g/dL (31.5-36.5); Mean Corpuscular Volume 88 fL (80-100); Mean Platelet Volume 9.6 fL (9.1-12.4); NEUTROPHILS PERCENT AUTO 65 % (41-73); Platelet Count 312 K/mm3 (150-400); RDW Coefficient Variation 12.7 % (11.7-14.2); RDW Standard Deviation 40.9 fL (35.1-46.3); Red Blood Cell Count 4.45 M/mm3 (3.80-5.20)
[2024-01-29 16:50] LABS: Albumin, Blood 3.1 g/dL (3.4-5.0); Albumin/Globulin Ratio 0.7 (0.8-1.8); Bilirubin, Total 0.3 mg/dL (0.1-1.0); Bun/Creatinine Ratio 9.1 (12.0-20.0); Calcium, Blood 9.2 mg/dL (8.5-10.1); Creatinine, Blood 0.66 mg/dL (0.40-1.00); Globulin, Blood 4.6 g/dL (2.2-4.0); Potassium, Blood 3.7 mmol/L (3.5-5.5); Total Protein, Blood 7.7 g/dL (6.4-8.2)
== END ==
LOC: LAB 16:34 → LAB SHORT 16:34
PROVIDERS: Internal Medicine
DX: R07.9 Chest pain, unspecified (principal)
CPT/HCPCS: 80053; 83880; 84484; 85025

== ENCOUNTER 2024-02-01 18:45 | Emergency (ER) | payer MEDICARE, OTHER ==
[~2024-02-01] VITALS: Ht 175.3 cm; Wt 158.8 kg
[~2024-02-01 18:45] MED LIST changes: -Cleocin HCl300 MG PO
[2024-02-01] MEDS ORDERED: Ketorolac Tromethamine 30mg Vial IV ONE (19:25)
[2024-02-01 19:54] LABS: BASOPHILS ABSOLUTE AUTO 0.05 K/mm3 (0.00-0.23); BASOPHILS PERCENT AUTO 1 % (0-2); EOSINOPHILS PERCENT AUTO 2 % (0-6); Hematocrit 39.8 % (33.0-51.0); Hemoglobin 13.1 g/dL (11.5-16.0); IMMATURE GRAN ABSOLUTE AUTO 0.03 K/mm3 (0.00-0.10); IMMATURE GRAN PERCENT AUTO 0 % (0-1); LYMPHOCYTES PERCENT AUTO 26 % (21-46); MONOCYTES ABSOLUTE AUTO 0.51 K/mm3 (0.16-1.47); MONOCYTES PERCENT AUTO 5 % (4-13); Mean Corpuscular HGB 29.6 pg (26.0-34.0); Mean Corpuscular HGB Conc 32.9 g/dL (31.5-36.5); Mean Corpuscular Volume 90 fL (80-100); Mean Platelet Volume 9.5 fL (9.1-12.4); NEUTROPHILS PERCENT AUTO 66 % (41-73); Platelet Count 318 K/mm3 (150-400); RDW Coefficient Variation 12.3 % (11.7-14.2); RDW Standard Deviation 40.4 fL (35.1-46.3); Red Blood Cell Count 4.43 M/mm3 (3.80-5.20); White Blood Cell Count 10.09 K/mm3 (4.00-11.30)
[2024-02-01 20:11] LABS: Albumin, Blood 3.3 g/dL (3.4-5.0); Albumin/Globulin Ratio 0.7 (0.8-1.8); Bilirubin, Total 0.3 mg/dL (0.1-1.0); Bun/Creatinine Ratio 16.8 (12.0-20.0); Calcium, Blood 9.2 mg/dL (8.5-10.1); Creatinine, Blood 0.48 mg/dL (0.40-1.00); Globulin, Blood 4.5 g/dL (2.2-4.0); Potassium, Blood 4.4 mmol/L (3.5-5.5); Total Protein, Blood 7.8 g/dL (6.4-8.2)
[2024-02-01 22:57] VITALS: BP 180/108
[2024-02-01] MEDS ORDERED: Clindamycin HCl 150 MG Cap PO ONE (23:00)
[2024-02-01] MEDS ORDERED: RX Prepack 6 Tabs Oxycodone 5mg UD ONE (23:00)
[2024-02-01] MEDS ORDERED: Cleocin HCl300 MG PO ×2 (23:03→23:12)
== END 2024-02-01 23:33 | disposition home or self-care (01) ==
LOC: ER 18:45
PROVIDERS: Physician Assistant
DX: K04.7 Periapical abscess without sinus (principal); E11.9 Type 2 diabetes mellitus without complications; Z88.0 Allergy status to penicillin; Z88.8 Allergy status to other drugs, medicaments and biological substances; Z79.899 Other long term (current) drug therapy; Z79.4 Long term (current) use of insulin; Z79.890 Hormone replacement therapy
CPT/HCPCS: 80053; 85025; 96374; 99282-25; A9270; J1885

== ENCOUNTER 2024-05-01 14:28 | Emergency (ER) | payer MEDICARE ==
[~2024-05-01] VITALS: Ht 167.6 cm; Wt 135.2 kg
[~2024-05-01 14:28] MED LIST changes: +Cleocin HCl300 MG PO
[2024-05-01 14:47] VITALS: BP 158/98
[2024-05-01 15:35] LABS: Source, Urine Clean Catch
[2024-05-01 15:55] LABS: BASOPHILS ABSOLUTE AUTO 0.05 K/mm3 (0.00-0.23); BASOPHILS PERCENT AUTO 1 % (0-2); EOSINOPHILS ABSOLUTE AUTO 0.14 K/mm3 (0.00-0.68); EOSINOPHILS PERCENT AUTO 1 % (0-6); Hematocrit 41.4 % (33.0-51.0); Hemoglobin 13.7 g/dL (11.5-16.0); IMMATURE GRAN ABSOLUTE AUTO 0.04 K/mm3 (0.00-0.10); IMMATURE GRAN PERCENT AUTO 0 % (0-1); LYMPHOCYTES ABSOLUTE AUTO 3.24 K/mm3 (0.84-5.20); LYMPHOCYTES PERCENT AUTO 30 % (21-46); MONOCYTES ABSOLUTE AUTO 0.54 K/mm3 (0.16-1.47); MONOCYTES PERCENT AUTO 5 % (4-13); Mean Corpuscular HGB 29.8 pg (26.0-34.0); Mean Corpuscular HGB Conc 33.1 g/dL (31.5-36.5); Mean Corpuscular Volume 90 fL (80-100); Mean Platelet Volume 9.9 fL (9.1-12.4); NEUTROPHILS ABSOLUTE AUTO 6.64 K/mm3 (1.96-9.15); NEUTROPHILS PERCENT AUTO 62 % (41-73); Platelet Count 292 K/mm3 (150-400); RDW Coefficient Variation 13.7 % (11.7-14.2); RDW Standard Deviation 45.1 fL (35.1-46.3); White Blood Cell Count 10.65 K/mm3 (4.00-11.30)
[2024-05-01] MEDS ORDERED: Acetaminophen 500 MG Tab PO ONE (16:00)
[2024-05-01 16:16] LABS: Ethanol (Alcohol), Blood, Med <3 mg/dL; Salicylate 4.3 mg/dL (2.8-20.0)
[2024-05-01 16:35] LABS: Appearance, Urine Clear (Clear); Bilirubin, Urine Neg (Neg); Blood, Urine Neg (Neg); Color, Urine Yellow (P-Yellow); Glucose Qualitative, Urine Neg (Neg); Ketones, Urine Neg (Neg); Leukocyte Esterase, Urine Neg (Neg); Nitrite, Urine Neg (Neg); Protein, Urine Neg (Neg); Urobilinogen, Urine NORM (Normal)
[2024-05-01 16:38] LABS: Acetaminophen, Random <2.0 ug/mL (10.0-30.0); Alanine Aminotransfer (ALT/SGP 19 U/L (12-78); Albumin, Blood 3.5 g/dL (3.4-5.0); Albumin/Globulin Ratio 0.9 (0.8-1.8); Alk Phos 94 U/L (50-136); Anion Gap 13 mmol/L (3-11); Aspartate Aminotrans (AST/SGOT 18 U/L (12-37); Bilirubin, Total 0.6 mg/dL (0.1-1.0); Blood Urea Nitrogen 7 mg/dL (8-24); Bun/Creatinine Ratio 11.3 (12.0-20.0); CO2, Blood 23 mmol/L (21-32); Calcium, Blood 9.2 mg/dL (8.5-10.1); Chloride, Blood 106 mmol/L (98-108); Creatinine, Blood 0.62 mg/dL (0.40-1.00); Globulin, Blood 4.1 g/dL (2.2-4.0); Glomerular Filtration Rate 109 (60-); Glucose, Blood 116 mg/dL (70-99); Potassium, Blood 3.8 mmol/L (3.5-5.5); Sodium, Blood 138 mmol/L (136-145); Total Protein, Blood 7.6 g/dL (6.4-8.2)
[2024-05-01 16:51] LABS: U Amphetamine Screen Not Detected; U Barbituate Screen Not Detected; U Benzodiazapine Screen Not Detected; U Buprenorphine Screen Not Detected; U Cannabinoids Screen Not Detected; U Cocaine Screen Not Detected; U Methadone Screen Not Detected; U Methamphetamine Screen Not Detected; U Opiates Screen Not Detected; U Oxycodone Screen Not Detected; U Phencyclidine Screen Not Detected
== END 2024-05-01 17:11 | disposition home or self-care (01) ==
LOC: ER 14:28
PROVIDERS: Physician Assistant
DX: F32.A Depression, unspecified (principal); E11.42 Type 2 diabetes mellitus with diabetic polyneuropathy; G43.909 Migraine, unspecified, not intractable, without status migrainosus; Z88.0 Allergy status to penicillin; Z88.1 Allergy status to other antibiotic agents; Z88.8 Allergy status to other drugs, medicaments and biological substances; Z79.84 Long term (current) use of oral hypoglycemic drugs; Z79.4 Long term (current) use of insulin; Z79.890 Hormone replacement therapy; Z79.899 Other long term (current) drug therapy
CPT/HCPCS: 80053; 80320; 81003; 81025; 85025; 99284; G0480

== ENCOUNTER 2024-05-03 17:44 | Observation (INO) | payer MEDICARE ==
[~2024-05-03] VITALS: Ht 167.6 cm; Wt 136.1 kg
[2024-05-03 18:39] VITALS: BP 174/85
[2024-05-03 19:19] LABS: Source, Urine Clean Catch
[2024-05-03 19:26] LABS: Appearance, Urine Clear (Clear); Bilirubin, Urine Neg (Neg); Blood, Urine 1+ (Neg); Color, Urine Yellow (P-Yellow); Glucose Qualitative, Urine Neg (Neg); Ketones, Urine Neg (Neg); Leukocyte Esterase, Urine Neg (Neg); Nitrite, Urine Neg (Neg); Protein, Urine Neg (Neg); Specific Gravity, Urine 1.015 (1.003-1.022); Urobilinogen, Urine NORM (Normal)
[2024-05-03] MEDS ORDERED: LINZESS145 MCG PO (19:27)
[2024-05-03] MEDS ORDERED: OMEP20ER PO (19:28)
[2024-05-03] MEDS ORDERED: Estradiol1 MG PO (19:29)
[2024-05-03] MEDS ORDERED: OZEMPIC0.25 MG/02 (19:32)
[2024-05-03 19:42] LABS: BASOPHILS ABSOLUTE AUTO 0.06 K/mm3 (0.00-0.23); BASOPHILS PERCENT AUTO 0 % (0-2); EOSINOPHILS ABSOLUTE AUTO 0.12 K/mm3 (0.00-0.68); EOSINOPHILS PERCENT AUTO 1 % (0-6); Hemoglobin 14.6 g/dL (11.5-16.0); IMMATURE GRAN ABSOLUTE AUTO 0.07 K/mm3 (0.00-0.10); IMMATURE GRAN PERCENT AUTO 1 % (0-1); LYMPHOCYTES ABSOLUTE AUTO 4.07 K/mm3 (0.84-5.20); LYMPHOCYTES PERCENT AUTO 28 % (21-46); MONOCYTES ABSOLUTE AUTO 0.59 K/mm3 (0.16-1.47); MONOCYTES PERCENT AUTO 4 % (4-13); Mean Corpuscular HGB 30.1 pg (26.0-34.0); Mean Corpuscular Volume 89 fL (80-100); Mean Platelet Volume 9.6 fL (9.1-12.4); NEUTROPHILS ABSOLUTE AUTO 9.64 K/mm3 (1.96-9.15); NEUTROPHILS PERCENT AUTO 66 % (41-73); Platelet Count 306 K/mm3 (150-400); RDW Coefficient Variation 13.6 % (11.7-14.2); RDW Standard Deviation 44.1 fL (35.1-46.3); Red Blood Cell Count 4.85 M/mm3 (3.80-5.20); White Blood Cell Count 14.55 K/mm3 (4.00-11.30)
[2024-05-03 19:47] LABS: U Amphetamine Screen Not Detected; U Barbituate Screen Not Detected; U Benzodiazapine Screen Not Detected; U Buprenorphine Screen Not Detected; U Cannabinoids Screen Not Detected; U Cocaine Screen Not Detected; U Methadone Screen Not Detected; U Methamphetamine Screen Not Detected; U Opiates Screen Not Detected; U Oxycodone Screen Not Detected; U Phencyclidine Screen Not Detected
[2024-05-03 19:50] LABS: Bacteria Many /hpf; Squamous Epithelial Cells Few /hpf (Few)
[2024-05-03 20:16] LABS: Ethanol (Alcohol), Blood, Med <3 mg/dL; Salicylate 4.5 mg/dL (2.8-20.0)
[2024-05-03 20:27] LABS: Acetaminophen, Random <2.0 ug/mL (10.0-30.0); Alanine Aminotransfer (ALT/SGP 18 U/L (12-78); Albumin, Blood 3.6 g/dL (3.4-5.0); Albumin/Globulin Ratio 0.8 (0.8-1.8); Alk Phos 99 U/L (50-136); Anion Gap 10 mmol/L (3-11); Aspartate Aminotrans (AST/SGOT 14 U/L (12-37); Bilirubin, Total 0.3 mg/dL (0.1-1.0); Blood Urea Nitrogen 7 mg/dL (8-24); Bun/Creatinine Ratio 11.6 (12.0-20.0); CO2, Blood 24 mmol/L (21-32); Calcium, Blood 9.6 mg/dL (8.5-10.1); Chloride, Blood 109 mmol/L (98-108); Globulin, Blood 4.4 g/dL (2.2-4.0); Glomerular Filtration Rate 110 (60-); Glucose, Blood 110 mg/dL (70-99); Potassium, Blood 3.8 mmol/L (3.5-5.5); Sodium, Blood 139 mmol/L (136-145)
[2024-05-03] MEDS ORDERED: BusPIRone HCl 10 MG Tab PO SCH (21:00)
[2024-05-04] MEDS ORDERED: HyDROXyzine HCl 25 MG Tab PO SCH
[2024-05-04] MEDS ORDERED: Levothyroxine Sodium 0.05 MG Tab PO SCH ×2 (06:00→09:00)
[2024-05-04] MEDS ORDERED: Omeprazole 20 MG CapCR PO SCH (06:00)
[2024-05-04] MEDS ORDERED: rOPINIRole HCl 0.25 MG Tab PO SCH (09:00)
[2024-05-04] MEDS ORDERED: LamoTRIgine 100 MG Tab PO SCH (09:00)
[2024-05-04] MEDS ORDERED: FLUoxetine HCL 20 MG CAP PO SCH (09:00)
[2024-05-04] MEDS ORDERED: Pregabalin 75 MG Cap PO SCH (09:00)
[2024-05-04] MEDS ORDERED: Estradiol 1 MG Tab PO SCH (09:00)
[2024-05-04] MEDS ORDERED: QUEtiapine Fumarate 50 MG TAB PO SCH (21:00)
[2024-05-04] MEDS ORDERED: TraZODone HCl 50 MG Tab PO SCH (21:00)
== END 2024-05-04 16:41 | disposition other institution (70) ==
LOC: ER 17:44 → EOR 17:45 → EDBEDREQTM 05-04 14:19 → EDBEDREQ 05-04 14:19 → EDBEDREQSVC 05-04 14:19 → EOR 05-04 16:41
PROVIDERS: ADMIT Student in an Organized Health Care Education/Training Program
DX: F31.9 Bipolar disorder, unspecified (principal); T43.212A Poisoning by selective serotonin and norepinephrine reuptake inhibitors, intentional self-harm, initial encounter; R45.851 Suicidal ideations; F43.10 Post-traumatic stress disorder, unspecified; Z88.0 Allergy status to penicillin; Z88.8 Allergy status to other drugs, medicaments and biological substances; Z79.899 Other long term (current) drug therapy
CPT/HCPCS: 36415; 80053; 80320; 81001; 81025; 85025; 87086; 93005; 93010; 99285-25; A9270; G0378; G0480

== ENCOUNTER 2024-05-03 22:07 | Inpatient (IN) | payer MEDICARE ==
[~2024-05-03 22:07] MED LIST changes: +Estradiol1 MG PO; +LINZESS145 MCG PO; +OZEMPIC0.25 MG/02
[2024-05-04] MEDS ORDERED: RisperiDONE 1 MG Tab PO PRN (16:05)
[2024-05-04] MEDS ORDERED: Ibuprofen 600 MG Tab PO PRN (16:05)
[2024-05-04] MEDS ORDERED: LORazepam 2 MG Tab PO PRN ×3 (16:05)
[2024-05-04] MEDS ORDERED: Haloperidol 5 MG Tab PO PRN ×2 (16:05→16:10)
[2024-05-04] MEDS ORDERED: FLU VACC TS2024-25(6MOS UP)/PF 45 MCG/0.5 ML SYRINGE IM SCH (16:10)
[2024-05-04] MEDS ORDERED: Acetaminophen 325 MG TABLET PO PRN (16:10)
[2024-05-04] MEDS ORDERED: Aluminum Hydroxide 320MG/5ML 473 ML PO PRN (16:10)
--- NOTE | 2024-05-04 18:02 | NUR ---
NEW ADMIT PT ADMITTED FROM [facility] ER. A&OX4, PLEASANT AND COOPERATIVE. SI W/ ATTEMPT 2X W/IN WEEK. WEDNESDAY PT ATTEMPTED TO HANG SELF IN GARAGE, FOUND BY BEST FRIEND AND REMOVED NOOSE, SECOND ATTEMPT WAS HANDFUL OF TRAZODONE FOUND BY WHO KNOCKED REMAINING OUT OF HAND, MOUTH, AND ATTEMPTED TO MAKE PT VOMIT. COUNSELOR RAINA BROUGHT PT TO ER YESTERDAY WHERE SHE HAS REMAINED UNTIL ADMIT. PT REPORTS LOSS OF BROTHER WHO RAISED HER, COMMITED SUICIDE A YEAR AGO AND PT HAS BEEN UNABLE TO ACCEPT THE LOSS, FINANCIAL DIFFICULTIES, AND PT ALSO REPORTS RECENT EMOTIONAL AFFAIR FROM AND [employer] ONLINE THAT SHE STATES WAS THE "[place] ON [place]" PT REPORTS CHILDREN/ GRANDCHILDREN ALL LIVE LOCAL, VERY CLOSE TO YOUNGEST GRANDDAUGHTER WHO IS AUTISTIC. PT OFTEN TEARFUL DURING ASSESSMENT AND CONTINUES TO STATE THAT SHE WANTED TO BE WITH HER BROTHER SO HE CAN HELP AND MAKE THINGS BETTER. PT REPORTS THAT IF SHE LEAVES SHE WOULD PROBABLY TRY TO SELF HARM AGAIN. PT INQUIRING ABOUT PHONE USE TO CALL AND FEELS THAT HE IS NO LONGER HAVING EMOTIONAL RELATIONS ONLINE. PT VISIT SCHEDULED FOR TOMORROW. PT OBSERVATION UNIT PROTOCOLS.
[2024-05-04 20:28] VITALS: BP 123/64
[2024-05-04] MEDS ORDERED: QUEtiapine Fumarate 50 MG TAB PO SCH (21:00)
[2024-05-04] MEDS ORDERED: Pregabalin 75 MG Cap PO SCH (21:00)
[2024-05-04] MEDS ORDERED: BusPIRone HCl 10 MG Tab PO SCH (21:00)
--- NOTE | 2024-05-05 03:33 | NUR ---
ASSUMED CARE FROM PRIOR SHIFT. PATIENT IS NEW TO THE UNIT. SHE TELLS ME SHE IS DOING"OK". SHE IS GUARDED WITH HER ANSWERS AND EMOTIONS. SHE FEELS "EXHAUSTED" SHE IS UNSURE IF SHE STILL FEELS SI. SHE DENIES AH AND VH. SHE IS SOCIALIZING WITH PATIENTS AND STAFF APPROPRIATELY. SHE IS COMPLIANT WITH: MEDICATIONS, ASSESSMENT AND CARE. SHE GOES TO BED WITHOUT ENCOURAGMENT. SHE SLEEPS THROUGH THE NIGHT. NO NOTED BEHAVIORS OR ISSUES. WE WILL CONTINUE TO MONITOR EVERY 15 MINUTES FOR SAFETY.
--- NOTE | 2024-05-05 05:21 | NUR ---
PATIENT CONTINUES TO SLEEP, NO NOTED BEHAVIORS OR ISSUES.
[2024-05-05] MEDS ORDERED: Levothyroxine Sodium 0.05 MG Tab PO SCH (06:00)
[2024-05-05] MEDS ORDERED: Omeprazole 20 MG CapCR PO SCH (06:00)
[2024-05-05] MEDS ORDERED: HyDROXyzine HCl 25 MG Tab PO SCH (08:00)
[2024-05-05 08:23] VITALS: BP 116/65
[2024-05-05] MEDS ORDERED: rOPINIRole HCl 0.25 MG Tab PO SCH (09:00)
[2024-05-05] MEDS ORDERED: Estradiol 1 MG Tab PO SCH (09:00)
[2024-05-05] MEDS ORDERED: LamoTRIgine 100 MG Tab PO SCH (09:00)
[2024-05-05] MEDS ORDERED: FLUoxetine HCL 20 MG CAP PO SCH (09:00)
[2024-05-05] MEDS ORDERED: Nicotine 14 MG PATCH TOP SCH (09:00)
--- NOTE | 2024-05-05 16:58 | NUR ---
NO IMMINENT RISK AT THIS TIME
--- NOTE | 2024-05-05 17:58 | NUR ---
SHIFT SUMMARY PT PLEASANT AND COOPERATIVE WITH CARE. DENIES SI CURRENTLY. PT DISCUSSED CONCERNS OF MEDICATIONS NOT WORKING SHE HAS BEEN ON THEM FOR MANY YEARS. ENCOURAGED PT TO DISCUSS CONCERNS WITH PROVIDER. PT HAD VISIT W/ TODAY AND REPORTED ANXIETY FOLLOWING VISIT, MASS SCORE COMPLETED AND MEDICATED PER ORDERS. PT SPENT MAJORITY OF THE DAY IN GROUP ROOM W/ PEERS AND STAFF WORKING ON PUZZLE. PT DOING WELL AND REPORTS FEELING MUCH BETTER. WILL CONTINUE TO MONITOR PER UNIT PROTOCOLS.
[2024-05-05] MEDS ORDERED: TraZODone HCl 50 MG Tab PO SCH (21:00)
[2024-05-05 21:26] VITALS: BP 142/79
--- NOTE | 2024-05-06 04:10 | NUR ---
ASSUMED CARE FROM PRIOR SHIFT. PATIENT IS A/OX4,ABLE TO VOICE NEEDS AND HAVE MEANINGFUL CONVERSATION. SHE CURRENTLY DENIES SI,VH AND AH. SHE MAINTAINS GOOD EYE CONTACT. SHE IS COMPLIANT WITH ASSESSMENT, CARE AND MEDICATIONS. SHE GOES TO BED WITHOUT ENCOURAGMENT. SHE SLEEPS THROUGH THE NIGHT WITHOUT ANY BEHAVIORS OR ISSUES.
--- NOTE | 2024-05-06 05:44 | NUR ---
PATIENT SLEPT THROUGH THE NIGHT. NO NOTED BEHAVIORS OR ISSUES
--- NOTE | 2024-05-06 13:46 | NUR ---
PRN med Pt c/o arthritis/knee pain 7/10w and requested meds. Pt given PRN APAP 650mg and ibuprofen 600mg at 1341.
--- NOTE | 2024-05-06 14:20 | NUR ---
Pt is A&O, calm, cooperative, eye contact is good. Pt states that her mood is "calm," affect is full and euthymic. Pt denies SI, HI, and hallucinations. Pt spent most of the day either in the TV room or reading at the nurses station. At about 1335 pt c/o bilat knee pain RT arthritis rated 7/10w and received PRN ibuprofen and APAP, which brought her pain down to 5 as of 1410. Staff will continue to monitor for safety and wellness.
--- NOTE | 2024-05-07 00:59 | NUR ---
Patient sleeping, no noted behaviors or issues.
--- NOTE | 2024-05-07 04:05 | NUR ---
ASSUMED CARE FROM PRIOR SHIFT. PATIENT IS ALREADY IN BED SLEEPING. SHE DOES WAKE EASILY FOR ASSESSMENT AND MEDICATIONS. SHE IS A/OX4. ABLE TO VOICE NEEDS. SHE TELLS ME SHE HAD A NICE VISIT WITH HER TODAY, HOWEVER THIS HAS MADE HER FEEL HOME SICK. SHE FEELS "MUCH IMPROVED", DENIES CURRENT SI, VH OR AH. SHE IS COMPLIANT WITH POC, MEDICATIONS AND ASSESSMENT. SHE DOES RETURN TO SLEEP. SHE SLEEPS THROUGH THE NIGHT WITHOUT ANY BEHAVIORS OR ISSUES. WE WILL CONTINUE TO MONITOR EVERY 15 MINUTES FOR SAFETY.
[2024-05-07 07:56] VITALS: BP 113/63
[2024-05-07] MEDS ORDERED: RISP2 PO (14:27)
== END 2024-05-07 15:00 | disposition home or self-care (01) | DRG 885 ==
LOC: BHU 22:07
PROVIDERS: ADMIT Psychiatry & Neurology Psychiatry
DX: F33.2 Major depressive disorder, recurrent severe without psychotic features (principal); R45.851 Suicidal ideations; Z88.0 Allergy status to penicillin; Z88.1 Allergy status to other antibiotic agents; Z88.8 Allergy status to other drugs, medicaments and biological substances; F41.9 Anxiety disorder, unspecified; M19.90 Unspecified osteoarthritis, unspecified site; G43.909 Migraine, unspecified, not intractable, without status migrainosus; E11.42 Type 2 diabetes mellitus with diabetic polyneuropathy; Z90.710 Acquired absence of both cervix and uterus; Z90.49 Acquired absence of other specified parts of digestive tract
CPT/HCPCS: A9270

== ENCOUNTER 2024-06-17 22:10 | Emergency (ER) | payer MEDICARE ==
[~2024-06-17] VITALS: Ht 167.6 cm; Wt 145.2 kg
[~2024-06-17 22:10] MED LIST changes: +RISP2 PO
[2024-06-17 22:59] LABS: BASOPHILS ABSOLUTE AUTO 0.04 K/mm3 (0.00-0.23); BASOPHILS PERCENT AUTO 0 % (0-2); EOSINOPHILS ABSOLUTE AUTO 0.14 K/mm3 (0.00-0.68); EOSINOPHILS PERCENT AUTO 2 % (0-6); Hematocrit 37.3 % (33.0-51.0); Hemoglobin 12.3 g/dL (11.5-16.0); IMMATURE GRAN ABSOLUTE AUTO 0.04 K/mm3 (0.00-0.10); IMMATURE GRAN PERCENT AUTO 0 % (0-1); LYMPHOCYTES ABSOLUTE AUTO 3.51 K/mm3 (0.84-5.20); LYMPHOCYTES PERCENT AUTO 38 % (21-46); MONOCYTES ABSOLUTE AUTO 0.62 K/mm3 (0.16-1.47); MONOCYTES PERCENT AUTO 7 % (4-13); Mean Corpuscular HGB 30.5 pg (26.0-34.0); Mean Corpuscular Volume 93 fL (80-100); Mean Platelet Volume 10.1 fL (9.1-12.4); NEUTROPHILS ABSOLUTE AUTO 4.92 K/mm3 (1.96-9.15); NEUTROPHILS PERCENT AUTO 53 % (41-73); Platelet Count 243 K/mm3 (150-400); RDW Coefficient Variation 13.1 % (11.7-14.2); RDW Standard Deviation 44.7 fL (35.1-46.3); Red Blood Cell Count 4.03 M/mm3 (3.80-5.20); White Blood Cell Count 9.27 K/mm3 (4.00-11.30)
[2024-06-17 22:59] LABS: Base Excess Venous 0 mmol/L; Bicarbonate Venous 24.6 mmol/L (24.0-30.0); PCO2 Venous 36.8 mmHg (38-42); pH Blood Venous 7.43 (7.34-7.37)
[2024-06-17 23:17] LABS: International Normalized Ratio 1.02; Prothrombin Time Results 10.9 Sec (9.7-11.5)
[2024-06-17 23:25] LABS: Albumin, Blood 2.8 g/dL (3.4-5.0); Albumin/Globulin Ratio 0.8 (0.8-1.8); Bilirubin, Total 0.3 mg/dL (0.1-1.0); Calcium, Blood 8.4 mg/dL (8.5-10.1); Creatinine, Blood 0.57 mg/dL (0.40-1.00); Globulin, Blood 3.3 g/dL (2.2-4.0); Potassium, Blood 3.5 mmol/L (3.5-5.5); Thyroid Stimulating Hormone 0.022 uIU/mL (0.360-4.800); Total Protein, Blood 6.1 g/dL (6.4-8.2)
[2024-06-18 00:36] LABS: Free Thyroxine 1.03 ng/dL (0.70-1.60)
[2024-06-18] MEDS ORDERED: Ketorolac Tromethamine 30mg Vial IV ONE (01:20)
[2024-06-18] MEDS ORDERED: Metoclopramide HCl 5MG / ML 2ML Vial IV ONE (01:20)
[2024-06-18] MEDS ORDERED: DiphenhydrAMINE HCl 50 MG/ML 1ML Vial IV ONE (01:20)
[2024-06-18 01:33] VITALS: BP 140/79
== END 2024-06-18 02:12 | disposition home or self-care (01) ==
LOC: ER 22:10
PROVIDERS: Student in an Organized Health Care Education/Training Program
DX: R53.1 Weakness (principal); R51.9 Headache, unspecified; F43.10 Post-traumatic stress disorder, unspecified; E11.42 Type 2 diabetes mellitus with diabetic polyneuropathy; I10 Essential (primary) hypertension; Z86.73 Personal history of transient ischemic attack (TIA), and cerebral infarction without residual deficits; Z79.899 Other long term (current) drug therapy; Z88.0 Allergy status to penicillin; Z88.1 Allergy status to other antibiotic agents; Z88.8 Allergy status to other drugs, medicaments and biological substances
CPT/HCPCS: 70450; 70496; 70498; 80053; 82803; 82947; 83735; 84439; 84443; 85025; 85610; 93005; 93010; 96374; 96375; 99285-25; J1200; J1885; J2765; Q9967